=== PATIENT | male | born 1945 | race African-American/Black ===

== ENCOUNTER 2024-09-28 01:20 | Emergency (ER) | payer OTHER ==
[~2024-09-28] VITALS: Ht 190.5 cm; Wt 165.0 kg
--- NOTE | 2024-09-28 03:09 | ED.PDOC ---
[place]. trauma (HPI) HPI Comments 79-year-old male who came to ER for chest wall injury. Patient has a ground level fall a week ago, and landed badly on his left side. Patient complaining of generalized pain all over his body, more prominent on his left chest wall, left arm, left hip. Patient able to ambulate with no difficulty Chief Complaint: Chest Wall Injury Time Seen by MD: 03:08 Reviewed notes: Nurses Notes Allergies: Coded Allergies: NO KNOWN ALLERGIES (Unverified , 09/28/24) Information Source: Patient Mode of Arrival: EMS Severity: Moderate Timing: Days Duration: Since onset Prehospital treatment: None Location: (L) Arm, Chest (Left) Mechanism: Fall Associated signs and symtoms: Weakness Past Medical History PAST MEDICAL HISTORY: Denies Surgical History (Other): G-tube Family History Family History: Reviewed,noncontributory to illness Social History Smoker: Non-Smoker Alcohol: Denies ETOH Use Drugs: Denies Drug Use Lives In: Home Constitutional: denies: chills, diaphoresis, fatigue, fever, malaise, sweats, weakness, others EENTM: denies: blurred vision, double vision, ear bleeding, ear discharge, ear drainage, ear pain, ear ringing, eye pain, eye redness, hearing loss, mouth pain, mouth swelling, nasal discharge, nose bleeding, nose congestion, nose pain, photophobia, tearing, throat pain, throat swelling, voice changes, others Respiratory: denies: cough, hemoptysis, orthopnea, SOB at rest, shortness of breath, SOB with excertion, stridor, wheezing, others Cardiovascular: reports: chest pain (Left chest wall); denies: dizzy spells, diaphoresis, Dyspnea on exertion, edema, irregular heart beat, left arm pain, lightheadedness, palpitations, PND, syncope, others Gastrointestinal: denies: abdomen distended, abdominal pain, blood streaked bowels, constipated, diarrhea, dysphagia, difficulty swallowing, hematemesis, melena, nausea, poor appetite, poor fluid intake, rectal bleeding, rectal pain, vomiting, others Genitourinary: denies: burning, dysuria, flank pain, frequency, hematuria, incontinence, penile discharge, penile sore, pain, testicle pain, testicle swelling, urgency, others Neurological: denies: dizziness, fainting, headache, left sided numbness, left sided weakness, numbness, paresthesia, pre-existing deficit, right sided numbness, right sided weakness, seizure, speech problems, tingling, tremors, weakness, others Musculoskeletal: reports: joint pain (Left hip), muscle pain (Left upper arm); denies: back pain, gout, joint swelling, muscle stiffness, neck pain, others Integumetry: reports: bruises; denies: change in color, change in hair/nails, dryness, laceration, lesions, lumps, rash, wounds, others Allergic/Immunocompromised: denies: Difficulty Healing, Frequent Infections, Hives, Itching, others Hematologic/Lymphatic: denies: anemia, blood clots, easy bleeding, easy bruising, swollen glands, others Endocrine: denies: excessive hunger, excessive sweating, excessive thirst, excessive urination, flushing, intolerance to cold, intolerance to heat, unexplained weight gain, unexplained weight loss, others Psychiatric: denies: anxiety, bipolar disorder, depression, hopeless, panic disorder, schizophrenia, sleepless, suicidal, others Physical Exam General Appearance: Mild Distress, Normal HEENT: Normal ENT Inspection, Pharynx Normal, TMs Normal Neck: Full Range of Motion, Non-Tender, Normal, Normal Inspection Respiratory: Chest Non-Tender, Lungs Clear, No Accessory Muscle Use, No Respiratory Distress, Normal Breath Sounds Cardiovascular: No Edema, No JVD, No Murmur, No Gallop, Normal Peripheral Pulses, Regular Rate/Rhythm Breast Exam: Deferred Gastrointestinal: No Organomegaly, Non Tender, No Pulsatile Mass, Normal Bowel Sounds, Soft Genitalia: Deferred Pelvic: Deferred Rectal: Deferred Extremities: No calf tenderness, Normal capillary refill, Normal inspection, Normal range of motion, Non-tender, No pedal edema Musculoskeletal : Apperance: Normal 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 Was a procedure done?: No EKG EKG : Pulse Rate (adult): 69 Cardiac Rhythm: NSR Differential Diagnosis Multiple Trauma: Fractures, Pulmonary Contusion, Abrasions, Contusion, Hematoma X-Ray, Labs, Meds, VS Vital Signs Date Time Temp Pulse Resp B/P (MAP) Pulse Ox O2 Delivery O2 Flow Rate FiO2 09/28/24 03:37 76 16 100 Room Air* 0 21 09/28/24 03:32 98.0 76 16 138/66 (90) 100 98.0 09/28/24 03:09 69 09/28/24 01:23 69 09/28/24 01:20 97.7 90 20 143/90 (107) 100 Lab Test 09/28/24 04:00 09/28/24 03:15 Range/Units Troponin I High Sensitivity 11 10 </=54 ng/L White Blood Count 12.6 H 4.4-10.8 10^3/uL Red Blood Count 3.52 L 4.5-5.90 10^6/uL Hemoglobin 11.2 L 13.5-17.5 g/dL Hematocrit 34.5 L 41.0-53.0 % Mean Corpuscular Volume 98.1 80.0-100.0 fL Mean Corpuscular Hemoglobin 31.7 28.0-32.0 pg Mean Corpuscular Hemoglobin Concent 32.3 32.0-36.0 g/dL Red Cell Distribution Width 14.9 H 11.8-14.3 % Platelet Count 113 L 140-450 10^3/uL Mean Platelet Volume 10.9 H 6.9-10.8 fL Neutrophils (%) (Auto) 83.2 H 37.0-80.0 % Lymphocytes (%) (Auto) 9.4 L 10.0-50.0 % Monocytes (%) (Auto) 7.2 0.0-12.0 % Eosinophils (%) (Auto) 0.0 0.0-7.0 % Basophils (%) (Auto) 0.2 0.0-2.0 % Neutrophils # (Auto) 10.5 H 1.6-8.6 10 ^3/uL Lymphocytes # (Auto) 1.2 0.4-5.4 10 ^3/uL Monocytes # (Auto) 0.9 0-1.3 10 ^3/uL Eosinophils # (Auto) 0 0-0.8 10 ^3/uL Basophils # (Auto) 0 0-0.2 10 ^3/uL Nucleated Red Blood Cells 0.5 % Prothrombin Time 15.3 H 9.3-11.8 sec Prothrombin Time INR 1.49 H 0.9-1.15 Activated Partial Thromboplast Time 24.3 L 24.5-34.5 SEC Sodium Level 137 136-145 mmol/L Potassium Level 4.4 3.5-5.1 mmol/L Chloride Level 103 98-107 mmol/L Carbon Dioxide Level 23 20-31 mmol/L Anion Gap 11 5-15 Blood Urea Nitrogen 33 H 9-23 mg/dL Creatinine 2.08 H 0.700-1.30 mg/dL Glomerular Filtration Rate Calc 32 >90 mL/min BUN/Creatinine Ratio 15.9 10.0-20.0 Serum Glucose 141 H 74-106 mg/dL Calcium Level 10.5 H 8.7-10.4 mg/dL Total Bilirubin 3.8 H 0.2-1.0 mg/dL Aspartate Amino Transferase (AST) 193 H 13-40 U/L Alanine Aminotransferase (ALT) 139 H 7-40 U/L Alkaline Phosphatase 115 46-116 U/L B-Type Natriuretic Peptide 18.46 0-100 pg/mL Total Protein 7.4 5.7-8.2 g/dL Albumin 3.7 3.2-4.8 g/dL Current Medications Medications (Trade) Dose Ordered Sig/Teetee Route Start Time Stop Time Status Last Admin Acetaminophen/ Hydrocodone Bitart ([place] 5/325MG Tab) 1 tab ONCE ONCE PO 09/28/24 03:00 09/28/24 03:06 DC 09/28/24 03:28 Troponin is on 10 and 11. EKG shows no signs of ischemia. Hemoglobin 11.2. BUN 33 creatinine 2.1. BNP is 19. The patient was given [place] for his pain. He is to follow up with primary care physician. Time of 1ST Reevaluation: 03:06 Reevaluation 1ST: Unchanged Patient Education/Counseling: Diagnosis, Treatment Family Education/Counseling: No Family Present Departure 1 Departure Time of Disposition: 05:25 Impression: Primary Impression: Fall Qualified Codes: W19.XXXA - Unspecified fall, initial encounter Additional Impressions: Chest wall contusion Qualified Codes: S20.212A - Contusion of left front wall of thorax, initial encounter Contusion, upper limb Qualified Codes: S40.022A - Contusion of left upper arm, initial encounter Disposition: HOME / SELF CARE / HOMELESS Condition: Stable Additional Instructions: Reassessed patient, vital signs stable. Denies any new symptoms. Patient is able to tolerate PO and ambulate/be mobile at their baseline without concern. Risks and benefits of all medications given or prescribed, if any, discussed. All lab work, imaging and diagnostic studies were reviewed by me. The patient was counseled extensively on my clinical impression, diagnosis, expected course of the disease, and plan, including their follow-up care. Will discharge patient. Patient instructed to follow up with Primary Care Physician within 24-48 hours. Strict return precautions given for further exacerbation of symptoms or for new symptoms. The patient was given the opportunity to ask questions and all que stions were answered by myself and the nursing/tech staff. Patient is in agreement with the care plan. The patient verbally expressed understanding of the discharge instructions, including the reasons to return to the Emergency Department. Discharged With: Self Critical Care Note Critical Care Time?: No Stability Stability form required: No Heart Score Heart Score: Heart Score Response (Comments) Value History N/A 0 EKG N/A 0 Age N/A 0 Risk Factors N/A 0 Troponin N/A 0 Total 0 I personally scribed for RCOW WIGGINS MD ([email or web address]) on 09/28/24 at 03:09. Electronically submitted by De Keenan ([email or web address]). I personally scribed for CROW WIGGINS MD ([email or web address]) on 09/28/24 at 03:09. Electronically submitted by De Keenan ([email or web address]). CROW WIGGINS MD Sep 28, 2024 03:09
[2024-09-28] MEDS: HYDROcodone-ACET 5/325MG TAB PO ONE (03:28)
[2024-09-28 03:32] VITALS: TEMP 98
[2024-09-28 03:37] VITALS: PULSE 76; RESP 16; O2SAT 100
[2024-09-28 03:43] LABS: Albumin 3.7 g/dL (3.2-4.8); Alkaline Phosphatase 115 U/L (46-116); Anion Gap 11 (5-15); Carbon Dioxide 23 mmol/L (20-31); Chloride 103 mmol/L (98-107); Potassium 4.4 mmol/L (3.5-5.1); Sodium 137 mmol/L (136-145)
[2024-09-28 03:44] LABS: Basophils # (auto) 0 10 ^3/uL (0-0.2); Basophils % (auto) 0.2 % (0.0-2.0); Eosinophils # (auto) 0 10 ^3/uL (0-0.8); Hematocrit 34.5 % (41.0-53.0); Hemoglobin 11.2 g/dL (13.5-17.5); Lymphocytes # (auto) 1.2 10 ^3/uL (0.4-5.4); Lymphocytes % (auto) 9.4 % (10.0-50.0); Mean Corpuscular Hemoglobin 31.7 pg (28.0-32.0); Mean Corpuscular Hgb Conc. 32.3 g/dL (32.0-36.0); Mean Corpuscular Volume 98.1 fL (80.0-100.0); Monocytes # (auto) 0.9 10 ^3/uL (0-1.3); Monocytes % (auto) 7.2 % (0.0-12.0); Neutrophils # (auto) 10.5 10 ^3/uL (1.6-8.6); Neutrophils % (auto) 83.2 % (37.0-80.0); Nucleated Red Blood Cells % 0.5 %; Platelet Count (auto) 113 10^3/uL (140-450); Red Blood Cells 3.52 10^6/uL (4.5-5.90); Red Cell Distribution Width 14.9 % (11.8-14.3); Total Protein 7.4 g/dL (5.7-8.2); White Blood Cell 12.6 10^3/uL (4.4-10.8)
[2024-09-28 03:47] LABS: Alanine Aminotransferase 139 U/L (7-40); Aspartate Aminotransferase 193 U/L (13-40); Bilirubin, Total 3.8 mg/dL (0.2-1.0); Calcium 10.5 mg/dL (8.7-10.4); Glucose 141 mg/dL (74-106)
[2024-09-28 04:16] LABS: INR 1.49 (0.9-1.15); Partial Thromboplastin Time 24.3 SEC (24.5-34.5); Prothrombin Time 15.3 sec (9.3-11.8)
[2024-09-28 04:44] LABS: BUN/Creatinine Ratio 15.9 (10.0-20.0)
[2024-09-28 04:49] LABS: Blood Urea Nitrogen 33 mg/dL (9-23)
--- NOTE | 2024-09-28 05:18 | DVH ---
CT CHEST, ABDOMEN AND PELVIS WITHOUT CONTRAST HISTORY: fall COMPARISON: None TECHNIQUE: Helical axial CT images of the chest, abdomen and pelvis were obtained without intravenous contrast. Multiplanar reformats. Dedicated CT of the left humerusr without contrast was performed. One or more of the following radiation dose reduction techniques were used for this examination: auto mated exposure control, adjustment of the mA and/or kV according to patient size, use of iterative re construction technique. Dose: DLP 1814.5 4+867.61 FINDINGS: Evaluation of visceral and vascular structures is limited due to lack of contrast administration. The airway is patent. No pneumomediastinum or pneumothorax. The lungs appear clear without focal air space opacity or effusion. No mediastinal or hilar adenopathy. Thoracic aorta appears normal in swati renae and contour. There is diffuse hepatic steatosis. The gallbladder, spleen, pancreas and adrenal glands appear unrem arkable. Kidneys appear symmetric without hydronephrosis. There is an IVC filter. No evidence of bowel obstruction or focal bowel wall thickening. Mild gaseous distention proximal col onic loops. Severe degenerative changes of the spine without discrete fracture. Specific attention to the left hu merus demonstrates no evidence of fracture or dislocation. No discrete soft tissue swelling. Moderate degenerative changes of the elbow joint without discrete fracture. IMPRESSION: 1. No acute findings chest abdomen pelvis 2. No discrete fracture of the left humerus. 3. Diffuse hepatic steatosis.
[2024-09-28 05:46] VITALS: BP 118/74; PULSE 83; RESP 18; O2SAT 96
--- NOTE | 2024-09-28 07:14 | ECG ---
[facility] Test Date: 2024-09-28 Test Time: 01:23:45 Pat Name: MANAV MENJIVAR Department: ER Room: Gender: M Copy Clerk: : 1945 Requested By: EMERGENCY EMERGENCY Order Number: [id number] Reading MD: Measurements Intervals [place] Rate: 69 P: 71 OH: 120 QRS: 63 QRSD: 92 T: 60 QT: 493 QTc: 529 Interpretive Statements Sinus rhythm Atrial premature complex Prolonged QT interval Please click the below link to view image of tracing.
== END 2024-09-28 05:51 | disposition home or self-care (01) ==
LOC: ER 01:20 → EDBD 01:20 → ER 05:51
DX: S20.212A Contusion of left front wall of thorax, initial encounter (principal); S40.022A Contusion of left upper arm, initial encounter; W18.30XA Fall on same level, unspecified, initial encounter; Y93.89 Activity, other specified; Y92.89 Other specified places as the place of occurrence of the external cause; Y99.8 Other external cause status
CPT/HCPCS: 36415; 71250; 73200; 74176; 80053; 83880; 84484; 85025; 85610; 85730; 93005

== ENCOUNTER 2024-09-29 04:37 | Inpatient (IN) | payer OTHER, MEDICAID ==
[~2024-09-29] VITALS: Ht 190.5 cm; Wt 94.2 kg
--- NOTE | 2024-09-29 05:57 | DVH ---
CHEST RADIOGRAPH Indication: ALOC Technique: Single frontal view of the chest was obtained COMPARISON: None FINDINGS: Lines and Tubes: None Lungs: Clear Pleura: No effusion. No pneumothorax. Cardiomediastinal contours: Unremarkable Bones: Unremarkable IMPRESSION: No acute disease.
[2024-09-29 06:29] LABS: Albumin 3.7 g/dL (3.2-4.8); Anion Gap 10 (5-15); Calcium 9.5 mg/dL (8.7-10.4); Carbon Dioxide 24 mmol/L (20-31); Chloride 102 mmol/L (98-107); Potassium 4.2 mmol/L (3.5-5.1); Total Protein 7.4 g/dL (5.7-8.2)
[2024-09-29 06:32] LABS: Sodium 136 mmol/L (136-145)
[2024-09-29 06:33] LABS: Alanine Aminotransferase 130 U/L (7-40); Alkaline Phosphatase 117 U/L (46-116); Aspartate Aminotransferase 170 U/L (13-40); Bilirubin, Total 2.2 mg/dL (0.2-1.0); Glucose 133 mg/dL (74-106)
[2024-09-29 06:52] LABS: Basophils # (auto) 0.1 10 ^3/uL (0-0.2); Basophils % (auto) 0.6 % (0.0-2.0); Eosinophils # (auto) 0 10 ^3/uL (0-0.8); Hematocrit 34.4 % (41.0-53.0); Hemoglobin 11.3 g/dL (13.5-17.5); Lymphocytes # (auto) 1.6 10 ^3/uL (0.4-5.4); Lymphocytes % (auto) 15.3 % (10.0-50.0); Mean Corpuscular Hemoglobin 32.1 pg (28.0-32.0); Mean Corpuscular Hgb Conc. 32.7 g/dL (32.0-36.0); Monocytes # (auto) 0.6 10 ^3/uL (0-1.3); Monocytes % (auto) 5.9 % (0.0-12.0); Neutrophils # (auto) 8.3 10 ^3/uL (1.6-8.6); Neutrophils % (auto) 78.2 % (37.0-80.0); Nucleated Red Blood Cells % 0.3 %; Platelet Count (auto) 123 10^3/uL (140-450); Red Blood Cells 3.51 10^6/uL (4.5-5.90); Red Cell Distribution Width 15.1 % (11.8-14.3); White Blood Cell 10.7 10^3/uL (4.4-10.8)
[2024-09-29 06:58] LABS: BUN/Creatinine Ratio 20.8 (10.0-20.0)
[2024-09-29 07:01] LABS: Blood Alcohol < 3.0 mg/dL (<10); Blood Urea Nitrogen 51 mg/dL (9-23)
--- NOTE | 2024-09-29 07:11 | ED.PDOC ---
Altered Mental Status HPI Comments 79 Y M, presents to the ED with CC of ALOC. Per ED staff, patient was found in ED lobby with an altered level of consciousness. Patient is currently AXO1 and is unable to provide any medical history. Chief Complaint: ALOC Time Seen by MD: 06:30 Reviewed Notes: Nurses Notes, Medications, Allergies Allergies: Coded Allergies: NO KNOWN ALLERGIES (Unverified , 09/28/24) Information Source: Patient Mode of Arrival: Wheelchair Severity: Mild Timing: Hours Duration: Since onset Prehospital treatment: None Quality: Confusion Recent: None History of: IV Drug Use Associated Signs and Symptoms: None Past Medical History PAST MEDICAL HISTORY: Denies Family History Family History: Reviewed,noncontributory to illness Social History Smoker: Non-Smoker Alcohol: Denies ETOH Use Drugs: Denies Drug Use Lives In: Home Constitutional: denies: chills, diaphoresis, fatigue, fever, malaise, sweats, weakness, others EENTM: denies: blurred vision, double vision, ear bleeding, ear discharge, ear drainage, ear pain, ear ringing, eye pain, eye redness, hearing loss, mouth pain, mouth swelling, nasal discharge, nose bleeding, nose congestion, nose pain, photophobia, tearing, throat pain, throat swelling, voice changes, others Respiratory: denies: cough, hemoptysis, orthopnea, SOB at rest, shortness of breath, SOB with excertion, stridor, wheezing, others Cardiovascular: denies: chest pain, dizzy spells, diaphoresis, Dyspnea on exertion, edema, irregular heart beat, left arm pain, lightheadedness, palpitations, PND, syncope, others Gastrointestinal: denies: abdomen distended, abdominal pain, blood streaked bowels, constipated, diarrhea, dysphagia, difficulty swallowing, hematemesis, melena, nausea, poor appetite, poor fluid intake, rectal bleeding, rectal pain, vomiting, others Genitourinary: denies: burning, dysuria, flank pain, frequency, hematuria, incontinence, penile discharge, penile sore, pain, testicle pain, testicle swelling, urgency, others Neurological: denies: dizziness, fainting, headache, left sided numbness, left sided weakness, numbness, paresthesia, pre-existing deficit, right sided num bness, right sided weakness, seizure, speech problems, tingling, tremors, weakness, others Musculoskeletal: denies: back pain, gout, joint pain, joint swelling, muscle pain, muscle stiffness, neck pain, others Integumetry: denies: bruises, change in color, change in hair/nails, dryness, laceration, lesions, lumps, rash, wounds, others Allergic/Immunocompromised: denies: Difficulty Healing, Frequent Infections, Hives, Itching, others Hematologic/Lymphatic: denies: anemia, blood clots, easy bleeding, easy bruising, swollen glands, others Endocrine: denies: excessive hunger, excessive sweating, excessive thirst, excessive urination, flushing, intolerance to cold, intolerance to heat, unexplained weight gain, unexplained weight loss, others Psychiatric: denies: anxiety, bipolar disorder, depression, hopeless, panic disorder, schizophrenia, sleepless, suicidal, others Unable to Obtain due to: Altered Mental Status Physical Exam General Appearance: Moderate Distress, Normal HEENT: Normal ENT Inspection, Pharynx Normal, TMs Normal Neck: Full Range of Motion, Non-Tender, Normal, Normal Inspection Respiratory: Chest Non-Tender, Lungs Clear, No Accessory Muscle Use, No Respiratory Distress, Normal Breath Sounds Cardiovascular: No Edema, No JVD, No Murmur, No Gallop, Normal Peripheral Pulses, Regular Rate/Rhythm Breast Exam: Deferred Gastrointestinal: No Organomegaly, Non Tender, No Pulsatile Mass, Normal Bowel Sounds, Soft Genitalia: Deferred Pelvic: Deferred Rectal: Deferred Extremities: No calf tenderness, Normal capillary refill, Normal inspection, Normal range of motion, Non-tender, No pedal edema Musculoskeletal : Apperance: Normal Neurologic: Disoriented, No Motor Deficits, Normal Affect, Normal Mood, No Sensory Deficits Cerebellar Function: NOT DONE Reflexes: NOT DONE Skin: Dry, Normal Color, Warm Lymphatic: No Adenopathy Was a procedure done? Was a procedure done?: No Differential Diagnosis (ALOC) Differential Diagnosis: Dehydration, Hypoxemia, Drug Overdose, ETOH Intoxication X-Ray, Labs, Meds, VS Vital Signs Date Time Temp Pulse Resp B/P (MAP) Pulse Ox O2 Delivery O2 Flow Rate FiO2 09/29/24 04:55 97.6 73 18 116/58 (77) 96 Lab Test 09/29/24 05:29 Range/Units White Blood Count 10.7 4.4-10.8 10^3/uL Red Blood Count 3.51 L 4.5-5.90 10^6/uL Hemoglobin 11.3 L 13.5-17.5 g/dL Hematocrit 34.4 L 41.0-53.0 % Mean Corpuscular Volume 98.0 80.0-100.0 fL Mean Corpuscular Hemoglobin 32.1 H 28.0-32.0 pg Mean Corpuscular Hemoglobin Concent 32.7 32.0-36.0 g/dL Red Cell Distribution Width 15.1 H 11.8-14.3 % Platelet Count 123 L 140-450 10^3/uL Mean Platelet Volume 11.5 H 6.9-10.8 fL Neutrophils (%) (Auto) 78.2 37.0-80.0 % Lymphocytes (%) (Auto) 15.3 10.0-50.0 % Monocytes (%) (Auto) 5.9 0.0-12.0 % Eosinophils (%) (Auto) 0.0 0.0-7.0 % Basophils (%) (Auto) 0.6 0.0-2.0 % Neutrophils # (Auto) 8.3 1.6-8.6 10 ^3/uL Lymphocytes # (Auto) 1.6 0.4-5.4 10 ^3/uL Monocytes # (Auto) 0.6 0-1.3 10 ^3/uL Eosinophils # (Auto) 0 0-0.8 10 ^3/uL Basophils # (Auto) 0.1 0-0.2 10 ^3/uL Nucleated Red Blood Cells 0.3 % Sodium Level 136 136-145 mmol/L Potassium Level 4.2 3.5-5.1 mmol/L Chloride Level 102 98-107 mmol/L Carbon Dioxide Level 24 20-31 mmol/L Anion Gap 10 5-15 Blood Urea Nitrogen 51 #H 9-23 mg/dL Creatinine 2.45 H 0.700-1.30 mg/dL Glomerular Filtration Rate Calc 26 >90 mL/min BUN/Creatinine Ratio 20.8 H 10.0-20.0 Serum Glucose 133 H 74-106 mg/dL Lactic Acid Level 1.9 0.4-2.0 mmol/L Calcium Level 9.5 8.7-10.4 mg/dL Total Bilirubin 2.2 H 0.2-1.0 mg/dL Aspartate Amino Transferase (AST) 170 H 13-40 U/L Alanine Aminotransferase (ALT) 130 H 7-40 U/L Alkaline Phosphatase 117 H 46-116 U/L Troponin I High Sensitivity 10 </=54 ng/L Total Protein 7.4 5.7-8.2 g/dL Albumin 3.7 3.2-4.8 g/dL Plasma/Serum Blood Alcohol < 3.0 <10 mg/dL [place] [address] Ph: [phone] DIAGNOSTIC IMAGING Diagnostic Imaging Report : [id number] Signed PATIENT: MANAV MENJIVAR ACCT: [id number] UNIT: [id number] : 1945 LOC: ER ROOM / BED: / AGE / SEX: 79 / M ADM STATUS: REG ER SERVICE 5 ORDERING PHYSICIAN: CROW WIGGINS MD PROCEDURE(s): CXRP - CHEST PORTABLE REASON: ALOC ORDER NUMBER(s): [id number], ACCESSION NUMBER(s): [id number] CHEST RADIOGRAPH Indication: ALOC Technique: Single frontal view of the chest was obtained COMPARISON: None FINDINGS: Lines and Tubes: None Lungs: Clear Pleura: No effusion. No pneumothorax. Cardiomediastinal contours: Unremarkable Bones: Unremarkable IMPRESSION: No acute disease. ATED BY: JOSE CHANDLER MD DICTATED DATE/TIME: 09/29/24552 SIGNED BY: JOSE CHANDLER MD SIGNED DATE/TIME: 09/29/24552 CC: Patient disoriented. Possibly alcohol abuse. Does not take care himself. Liver profile elevated. Kidney function elevated. ATN. Establish intravenous access. Was given fluids. Was given thiamine. Tolerating diet. Unknown about his past medical history. Explained to the patient. Continue cardiac monitoring. Time of 1ST Reevaluation: 07:00 Reevaluation 1ST: Unchanged Patient Education/Counseling: Diagnosis, Treatment Family Education/Counseling: No Family Present Departure 1 Departure Time of Disposition: 07:27 Impression: Primary Impression: Metabolic encephalopathy Additional Impression: Alcoholic liver disease Disposition: ADMITTED INPATIENT Admit to: Med Surg Condition: Guarded Critical Care Note Critical Care Time?: Yes (90 min-critical care time only) Stability Stability form required: No Heart Score Heart Score: Heart Score Response (Comments) Value History N/A 0 EKG N/A 0 Age N/A 0 Risk Factors N/A 0 Troponin N/A 0 Total 0 I personally scribed for ROSIO MARTIN MD ([email or web address]) on 09/29/24 at 07:11. Electronically submitted by Peggy Lugo ([email or web address]). I personally scribed for ROSIO MARTIN MD ([email or web address]) on 09/29/24 at 07:32. Electronically submitted by Peggy Lugo ([email or web address]). ROSIO MARTIN MD Sep 29, 2024 07:11
[2024-09-29] MEDS: SODIUM CHLORIDE 0.9% 1,000 ML IV ONE (09:15)
[2024-09-29] MEDS: THIAMINE 100mg/ml INJ (200mg/2ml VIAL) IV ONE (09:23)
[2024-09-29] MEDS ORDERED: DOCUSATE SOD 100 MG CAP PO PRN (10:30)
[2024-09-29] MEDS ORDERED: ACETAMINOPHEN 325 MG TAB PO PRN (10:30)
[2024-09-29] MEDS ORDERED: MORPHINE SULFATE INJ 2 MG/ml SYRG IV PRN (10:30)
[2024-09-29] MEDS ORDERED: ONDANSETRON HCL 4 MG/2 ML VIAL IV PRN (10:30)
[2024-09-29] MEDS ORDERED: NITROGLYCERIN 0.4 MG SL TAB SL PRN (10:30)
--- NOTE | 2024-09-29 10:47 | DVHHP2 ---
History of Present Illness Reason for Visit: Metabolic encephalopathy History of Present Illness The patient is a 79-year-old male on hospice with past medical history of liver disease presented to [facility] ED for evaluation of altered level of consciousness. As reported patient was found in the ED lab be altered, generalized weakness, shortness of breaths, unable to provide detail medical history. Patient was seen and evaluated in the ED, laboratory data shows WBC 10.7, hemoglobin 11.3, hematocrit 344, platelets 123, sodium 136, potassium 4.2, BUN 51, creatinine 2.45, GFR 26, glucose 133, AST one hundred seventy, ALT 130, troponin 10, total bilirubin 2.2, blood pressure 132/87, pulse 94, temperature 98.1 F, O2 saturation 99% on oxygen. Chest x-ray show no acute disease. Please see medication orders section in the computer. On my assessment, patient denied chest pain, no headache, no dizziness, no diaphoresis, currently on oxygen, no diarrhea, no nausea, no vomiting, no fever, no chills. Patient was admitted for further evaluation and medical management. Past Medical History Liver disease Past Surgical History Unknown Family History Reviewed, noncontributory to the management of this case. Past Social History The patient lives at home, denies smoking, alcohol or illicit drugs abuse. Review of Systems Constitutional: Yes: Weakness; No: Fever, Chills, Sweats, Malaise, Other Eyes: No: Pain, Vision change, Conjunctivae inflammation, Eyelid inflammation, Other, Redness ENT: No: Ear pain, Ear discharge, Nose pain, Nose discharge, Nose congestion, Mouth pain, Mouth swelling, Throat pain, Throat swelling, Other Respiratory: Shortness of breath; No: Cough, Dry, SOB with excertion, Wheezing, Hemoptysis, Pleuritic Pain, Sputum, Wheezing, Other Cardiovascular: No: Chest Pain, Palpitations, Orthopnea, Paroxysmal Noc. Dyspnea, Edema, Lt Headedness, Other Gastrointestinal: No: Nausea, Vomiting, Abdominal Pain, Diarrhea, Constipation, Melena, Hematochezia, Other Genitourinary: No Dysuria, No Frequency, No Incontinence, No Hematuria, No Retention, No Other Musculoskeletal: No: other, neck pain, shoulder pain, arm pain, back pain, hand pain, leg pain, foot pain Skin: No: Rash, Lesions, Jaundice, Bruising, Other Neurological: No: Weakness, Numbness, Incoordination, Change in speech, Confusion, Seizures, Other Allergies: Coded Allergies: NO KNOWN ALLERGIES (Unverified , 09/28/24) Exam Vital Signs Vital Signs Date Time Temp Pulse Resp B/P (MAP) Pulse Ox O2 Delivery O2 Flow Rate FiO2 09/29/24 09:27 98.1 94 18 132/87 (102) 100 98.1 09/29/24 09:27 Room Air General Appearance: Alert, Oriented X3, Cooperative, No acute distress HEENT: Atraumatic, PERRLA, EOMI, Mucous membr. moist/pink Respiratory: Clear to auscultation, Normal air movement Cardiovascular: Regular rate, Normal S1, Normal S2, No murmurs Abdominal: Normal bowel sounds, Soft, No tenderness, No hepatospenomegaly, No masses Extremities: No clubbing, No cyanosis, No edema, Normal pulses, No tenderness/swelling Skin: No rashes, No breakdown, No significant lesion Neuro: Normal tone, Sensation intact, Cranial nerves 3-12 NL, Reflexes 2+, Other (Generalized weakness) Psych/Mental Status: Mental status NL, Mood NL Labs/Xrays Labs Test 09/29/24 08:00 09/29/24 05:29 Range/Units Plasma/Serum Blood Alcohol < 3.0 <10 mg/dL White Blood Count 10.7 4.4-10.8 10^3/uL Red Blood Count 3.51 L 4.5-5.90 10^6/uL Hemoglobin 11.3 L 13.5-17.5 g/dL Hematocrit 34.4 L 41.0-53.0 % Mean Corpuscular Volume 98.0 80.0-100.0 fL Mean Corpuscular Hemoglobin 32.1 H 28.0-32.0 pg Mean Corpuscular Hemoglobin Concent 32.7 32.0-36.0 g/dL Red Cell Distribution Width 15.1 H 11.8-14.3 % Platelet Count 123 L 140-450 10^3/uL Mean Platelet Volume 11.5 H 6.9-10.8 fL Neutrophils (%) (Auto) 78.2 37.0-80.0 % Lymphocytes (%) (Auto) 15.3 10.0-50.0 % Monocytes (%) (Auto) 5.9 0.0-12.0 % Eosinophils (%) (Auto) 0.0 0.0-7.0 % Basophils (%) (Auto) 0.6 0.0-2.0 % Neutrophils # (Auto) 8.3 1.6-8.6 10 ^3/uL Lymphocytes # (Auto) 1.6 0.4-5.4 10 ^3/uL Monocytes # (Auto) 0.6 0-1.3 10 ^3/uL Eosinophils # (Auto) 0 0-0.8 10 ^3/uL Basophils # (Auto) 0.1 0-0.2 10 ^3/uL Nucleated Red Blood Cells 0.3 % Sodium Level 136 136-145 mmol/L Potassium Level 4.2 3.5-5.1 mmol/L Chloride Level 102 98-107 mmol/L Carbon Dioxide Level 24 20-31 mmol/L Anion Gap 10 5-15 Blood Urea Nitrogen 51 #H 9-23 mg/dL Creatinine 2.45 H 0.700-1.30 mg/dL Glomerular Filtration Rate Calc 26 >90 mL/min BUN/Creatinine Ratio 20.8 H 10.0-20.0 Serum Glucose 133 H 74-106 mg/dL Lactic Acid Level 1.9 0.4-2.0 mmol/L Calcium Level 9.5 8.7-10.4 mg/dL Total Bilirubin 2.2 H 0.2-1.0 mg/dL Aspartate Amino Transferase (AST) 170 H 13-40 U/L Alanine Aminotransferase (ALT) 130 H 7-40 U/L Alkaline Phosphatase 117 H 46-116 U/L Troponin I High Sensitivity 10 </=54 ng/L Total Protein 7.4 5.7-8.2 g/dL Albumin 3.7 3.2-4.8 g/dL PATIENT: MANAV MENJIVAR ACCT: [id number] UNIT: [id number] : 1945 LOC: ER ROOM / BED: / AGE / SEX: 79 / M ADM STATUS: REG ER SERVICE [id number] ORDERING PHYSICIAN: CROW WIGGINS MD PROCEDURE(s): CXRP - CHEST PORTABLE REASON: ALOC ORDER NUMBER(s): [id number], ACCESSION NUMBER(s): [id number] CHEST RADIOGRAPH Indication: ALOC Technique: Single frontal view of the chest was obtained COMPARISON: None FINDINGS: Lines and Tubes: None Lungs: Clear Pleura: No effusion. No pneumothorax. Cardiomediastinal contours: Unremarkable Bones: Unremarkable IMPRESSION: No acute disease. Assessment/Plan Assessment/Plan Metabolic encephalopathy Generalized weakness Alcoholic liver disease Elevated liver enzymes Acute on chronic renal failure Plan 1. Admit to telemetry unit 2. Breathing treatment 3. Pain control management 4. Management of fluids and electrolytes 5. Consultation for nephrology 6. Diagnostic tests chest x-ray 7. DVT prophylaxis-on SCDs 8. Repeat labs CBC, CMP in a.m. 9. Continue with current medical management 10. Treatment plan discussed with patient and RN. Patient verbalized understanding. Plan discussed with: Patient, Other (RN) Problem List: (1) Metabolic encephalopathy (2) Elevated liver enzymes (3) Generalized weakness (4) Alcoholic liver disease (5) Acute on chronic renal failure Date of Service: Sep 29, 2024 Billing Provider: ANGELO OFNSECA DNP Common Visit Codes: [id number] INP/OBS CARE (HIGH) ANGELO FONSECA DNP Sep 29, 2024 10:47
[2024-09-29] MEDS: SODIUM CHLORIDE 0.9% 1,000 ML IV SCH (11:24)
[2024-09-30] VITALS (9 sets, daily range): BP systolic 111–158; BP diastolic 48–73; PULSE 57–84; RESP 18–19; TEMP 97.4–98; O2SAT 96–100
[2024-09-30] MEDS: MULTIPLE VITAMIN TAB PO SCH (09:27)
[2024-09-30] MEDS: FAMOTIDINE (10MG/ML) 2ML VL IV SCH (09:27)
[2024-09-30] MEDS: FOLIC ACID 1 MG TAB PO SCH (09:27)
[2024-09-30] MEDS: THIAMINE 100mg/ml INJ (200mg/2ml VIAL) IV SCH (09:28)
--- NOTE | 2024-09-30 12:41 | DVHPN2 ---
Reviewed: Care Plan, H&P, Labs, Medications, Previous Orders, Radiology Changes from previous H/P or p: No Changes Eyes: No Pain, No Vision change, No Conjunctivae inflammation, No Eyelid inflammation, No Other, No Redness ENT: No Ear pain, No Ear discharge, No Nose pain, No Nose discharge, No Nose congestion, No Mouth pain, No Mouth swelling, No Throat pain, No Throat swelling, No Other Cardiovascular: No Chest Pain, No Palpitations, No Orthopnea, No Paroxysmal Noc. Dyspnea, No Edema, No Lt Headedness, No Other Respiratory: No Cough, No Dry; Shortness of breath; No SOB with excertion, No Wheezing, No Hemoptysis, No Pleuritic Pain, No Sputum, No Other Gastrointestinal: No Nausea, No Vomiting, No Abdominal Pain, No Diarrhea, No Constipation, No Melena, No Hematochezia, No Other Genitourinary: No Dysuria, No Frequency, No Incontinence, No Hematuria, No Retention, No Other Musculoskeletal: No other, No neck pain, No shoulder pain, No arm pain, No back pain, No hand pain, No leg pain, No foot pain Skin: No Rash, No Lesions, No Jaundice, No Bruising, No Other Objective Vitals Vital Signs Date Time Temp Pulse Resp B/P (MAP) Pulse Ox O2 Delivery O2 Flow Rate FiO2 09/30/24 10:22 100 Room Air* 0 21 09/30/24 08:46 97.4 57 18 146/48 (80) 97.4 Intake/Output Intake and Output 09/30/24 07:00 Intake Total 0 ml Balance 0 ml Intake Oral 0 ml Medications Current Medications Medications Dose Ordered Sig/Teetee Route Start Time Stop Time Status Last Admin Dose Admin Thiamine HCl 100 mg DAILY IV 09/30/24 10:00 Folic Acid 1 mg DAILY PO 09/30/24 10:00 09/30/24 09:27 1 MG Famotidine 10 mg DAILY IV 09/30/24 10:00 Sodium Chloride 1,000 ml @ 60 mls/hr [id number] IV 09/29/24 10:30 09/29/24 11:24 60 MLS/HR Acetaminophen/ Hydrocodone Bitart 1 tab Q4HP PRN PO 09/29/24 10:30 Ondansetron HCl 4 mg Q4HP PRN IV 09/29/24 10:30 Docusate Sodium 100 mg BIDPRN PRN PO 09/29/24 10:30 Acetaminophen 650 mg Q6HP PRN PO 09/29/24 10:30 Nitroglycerin 0.4 mg Q5MINP PRN SL 09/29/24 10:30 Morphine Sulfate 2 mg Q30M PRN IV 09/29/24 10:30 Multivitamins 1 tab DAILY PO 09/30/24 10:00 09/30/24 09:27 1 TAB Laboratory Results Laboratory Tests 09/29/24 05:29 Labs and/or images reviewed: Labs reviewed by me, Image(s) reviewed by me Assessment/Plan Assessment/Plan Acute Metabolic encephalopathy Acute Generalized weakness Alcoholic liver disease thiamine folic acid multiple Elevated liver enzymes, we will check ammonia level Acute on chronic renal failure Acute dehydration: IV Patient is hospice revoked Patient belongs to [facility] Plan discussed with: Patient My Orders Orders - LUIZ NUÑEZ MD Procedure Category Date Status Time Ammonia LAB 09/30/24 Logged 12:35 Document Home Meds ED NURSING 09/30/24 Verified Date of Service: Sep 30, 2024 Billing Provider: LUIZ NUÑEZ MD Common Visit Codes: [id number] INP/OBS CARE(HIGH) LUIZ NUÑEZ MD Sep 30, 2024 12:41
--- NOTE | 2024-09-30 19:10 | DVHINCON2 ---
Date of service: Sep 30, 2024 Reason for Consultation PAUL History of Present Illness 79 years old male on hospice with unknown exact medical history presented with altered mental status per HPI Patient is verbally abusive non cooperative HPI obtained from the chart Allergies: Coded Allergies: NO KNOWN ALLERGIES (Unverified , 09/28/24) Home Meds Unable to Obtain Active Prescriptions or Reported Meds Current Medications Current Medications Medications (Trade) Dose Ordered Sig/Teetee Route PRN Reason Start Time Stop Time Status Last Admin Thiamine HCl 100 mg DAILY IV 09/30/24 10:00 Folic Acid 1 mg DAILY PO 09/30/24 10:00 09/30/24 09:27 Famotidine (Pepcid Injection) 10 mg DAILY IV 09/30/24 10:00 Multivitamins (Mvi Tab) 1 tab DAILY PO 09/30/24 10:00 09/30/24 09:27 H&P Exam Vital Signs/I&O Vital Sign Date Time Temp Pulse Resp B/P (MAP) Pulse Ox O2 Delivery O2 Flow Rate FiO2 09/30/24 16:37 97.5 66 18 135/61 (85) 99 97.5 09/30/24 10:22 Room Air* 0 21 Intake and Output 09/29/24 09/30/24 19:00 07:00 Intake Total 0 ml Balance 0 ml Intake Oral 0 ml Labs/Diagnostic Data Labs/Diagnostic Data Laboratory Tests Test 09/29/24 08:00 09/29/24 05:29 Range/Units Plasma/Serum Blood Alcohol < 3.0 < 3.0 <10 mg/dL White Blood Count 10.7 4.4-10.8 10^3/uL Red Blood Count 3.51 L 4.5-5.90 10^6/uL Hemoglobin 11.3 L 13.5-17.5 g/dL Hematocrit 34.4 L 41.0-53.0 % Mean Corpuscular Volume 98.0 80.0-100.0 fL Mean Corpuscular Hemoglobin 32.1 H 28.0-32.0 pg Mean Corpuscular Hemoglobin Concent 32.7 32.0-36.0 g/dL Red Cell Distribution Width 15.1 H 11.8-14.3 % Platelet Count 123 L 140-450 10^3/uL Mean Platelet Volume 11.5 H 6.9-10.8 fL Neutrophils (%) (Auto) 78.2 37.0-80.0 % Lymphocytes (%) (Auto) 15.3 10.0-50.0 % Monocytes (%) (Auto) 5.9 0.0-12.0 % Eosinophils (%) (Auto) 0.0 0.0-7.0 % Basophils (%) (Auto) 0.6 0.0-2.0 % Neutrophils # (Auto) 8.3 1.6-8.6 10 ^3/uL Lymphocytes # (Auto) 1.6 0.4-5.4 10 ^3/uL Monocytes # (Auto) 0.6 0-1.3 10 ^3/uL Eosinophils # (Auto) 0 0-0.8 10 ^3/uL Basophils # (Auto) 0.1 0-0.2 10 ^3/uL Nucleated Red Blood Cells 0.3 % Sodium Level 136 136-145 mmol/L Potassium Level 4.2 3.5-5.1 mmol/L Chloride Level 102 98-107 mmol/L Carbon Dioxide Level 24 20-31 mmol/L Anion Gap 10 5-15 Blood Urea Nitrogen 51 #H 9-23 mg/dL Creatinine 2.45 H 0.700-1.30 mg/dL Glomerular Filtration Rate Calc 26 >90 mL/min BUN/Creatinine Ratio 20.8 H 10.0-20.0 Serum Glucose 133 H 74-106 mg/dL Lactic Acid Level 1.9 0.4-2.0 mmol/L Calcium Level 9.5 8.7-10.4 mg/dL Total Bilirubin 2.2 H 0.2-1.0 mg/dL Aspartate Amino Transferase (AST) 170 H 13-40 U/L Alanine Aminotransferase (ALT) 130 H 7-40 U/L Alkaline Phosphatase 117 H 46-116 U/L Troponin I High Sensitivity 10 </=54 ng/L Total Protein 7.4 5.7-8.2 g/dL Albumin 3.7 3.2-4.8 g/dL Assessment acute kidney injury unknown baseline Verbally abusive patient Non cooperative No further renal recommendations I will sign off this case We will not follow this patient given his aggressive nature Plan discussed with: Other (DARLIN Alonzo) CHRISTAL JOYNER MD Sep 30, 2024 19:10
[2024-10-01 08:00] VITALS: O2SAT 100
[2024-10-01 09:00] VITALS: BP 156/75; PULSE 83; RESP 17; TEMP 97.7; O2SAT 100
--- NOTE | 2024-10-01 11:49 | DVHPN2 ---
Reviewed: Care Plan, H&P, Labs, Medications, Previous Orders, Radiology Changes from previous H/P or p: No Changes Eyes: No Pain, No Vision change, No Conjunctivae inflammation, No Eyelid inflammation, No Other, No Redness ENT: No Ear pain, No Ear discharge, No Nose pain, No Nose discharge, No Nose congestion, No Mouth pain, No Mouth swelling, No Throat pain, No Throat swelling, No Other Cardiovascular: No Chest Pain, No Palpitations, No Orthopnea, No Paroxysmal Noc. Dyspnea, No Edema, No Lt Headedness, No Other Respiratory: No Cough, No Dry; Shortness of breath; No SOB with excertion, No Wheezing, No Hemoptysis, No Pleuritic Pain, No Sputum, No Other Gastrointestinal: No Nausea, No Vomiting, No Abdominal Pain, No Diarrhea, No Constipation, No Melena, No Hematochezia, No Other Genitourinary: No Dysuria, No Frequency, No Incontinence, No Hematuria, No Retention, No Other Musculoskeletal: No other, No neck pain, No shoulder pain, No arm pain, No back pain, No hand pain, No leg pain, No foot pain Skin: No Rash, No Lesions, No Jaundice, No Bruising, No Other Objective Vitals Vital Signs Date Time Temp Pulse Resp B/P (MAP) Pulse Ox O2 Delivery O2 Flow Rate FiO2 10/01/24 09:00 97.7 83 17 156/75 (102) 100 97.7 10/01/24 08:00 Room Air* 0 21 Intake/Output Intake and Output 10/01/24 07:00 Intake Total 1940 ml Balance 1940 ml Intake Oral 1940 ml Medications Current Medications Medications Dose Ordered Sig/Teetee Route Start Time Stop Time Status Last Admin Dose Admin Thiamine HCl 100 mg DAILY IV 09/30/24 10:00 Folic Acid 1 mg DAILY PO 09/30/24 10:00 09/30/24 09:27 1 MG Famotidine 10 mg DAILY IV 09/30/24 10:00 Sodium Chloride 1,000 ml @ 60 mls/hr [id number] IV 09/29/24 10:30 09/29/24 11:24 60 MLS/HR Acetaminophen/ Hydrocodone Bitart 1 tab Q4HP PRN PO 09/29/24 10:30 Ondansetron HCl 4 mg Q4HP PRN IV 09/29/24 10:30 Docusate Sodium 100 mg BIDPRN PRN PO 09/29/24 10:30 Acetaminophen 650 mg Q6HP PRN PO 09/29/24 10:30 Nitroglycerin 0.4 mg Q5MINP PRN SL 09/29/24 10:30 Morphine Sulfate 2 mg Q30M PRN IV 09/29/24 10:30 Multivitamins 1 tab DAILY PO 09/30/24 10:00 09/30/24 09:27 1 TAB Laboratory Results Laboratory Tests 09/29/24 05:29 Labs and/or images reviewed: Labs reviewed by me, Image(s) reviewed by me Assessment/Plan Assessment/Plan Acute Metabolic encephalopathy resolved Acute Generalized weakness resolved Alcoholic liver disease thiamine folic acid multiple Elevated liver enzymes, we will check ammonia level patient refused blood draws Acute on chronic renal failure, patient was abusive to the translator and interpreter and she refused to follow up with the patient Acute dehydration: IV Patient is hospice revoked Patient belongs to [facility] Patient is abusive to the staff and myself and uncooperative. Plan discussed with: Patient My Orders Orders - LUIZ NUÑEZ MD Procedure Category Date Status Time Ammonia LAB 09/30/24 Logged 12:35 Document Home Meds ED NURSING 09/30/24 Transmitted * [employer]er CONS 09/30/24 Transmitted Consult Date of Service: Oct 01, 2024 Billing Provider: LUIZ NUÑEZ MD Common Visit Codes: [id number] INP/OBS CARE(HIGH) LUIZ NUÑEZ MD Oct 01, 2024 11:49
--- NOTE | 2024-10-01 11:52 | DVHDS2 ---
Discharge Summary Date of Admission Sep 29, 2024 at 10:22 Date of Discharge: Oct 01, 2024 Admitting Diagnosis Generalized weakness Wounds: None Labs/Diagnostic Data: Laboratory Results Test 09/29/24 08:00 09/29/24 05:29 Plasma/Serum Blood Alcohol < 3.0 mg/dL (<10) White Blood Count 10.7 10^3/uL (4.4-10.8) Red Blood Count 3.51 10^6/uL (4.5-5.90) Hemoglobin 11.3 g/dL (13.5-17.5) Hematocrit 34.4 % (41.0-53.0) Mean Corpuscular Volume 98.0 fL (80.0-100.0) Mean Corpuscular Hemoglobin 32.1 pg (28.0-32.0) Mean Corpuscular Hemoglobin Concent 32.7 g/dL (32.0-36.0) Red Cell Distribution Width 15.1 % (11.8-14.3) Platelet Count 123 10^3/uL (140-450) Mean Platelet Volume 11.5 fL (6.9-10.8) Neutrophils (%) (Auto) 78.2 % (37.0-80.0) Lymphocytes (%) (Auto) 15.3 % (10.0-50.0) Monocytes (%) (Auto) 5.9 % (0.0-12.0) Eosinophils (%) (Auto) 0.0 % (0.0-7.0) Basophils (%) (Auto) 0.6 % (0.0-2.0) Neutrophils # (Auto) 8.3 10 ^3/uL (1.6-8.6) Lymphocytes # (Auto) 1.6 10 ^3/uL (0.4-5.4) Monocytes # (Auto) 0.6 10 ^3/uL (0-1.3) Eosinophils # (Auto) 0 10 ^3/uL (0-0.8) Basophils # (Auto) 0.1 10 ^3/uL (0-0.2) Nucleated Red Blood Cells 0.3 % Sodium Level 136 mmol/L (136-145) Potassium Level 4.2 mmol/L (3.5-5.1) Chloride Level 102 mmol/L (98-107) Carbon Dioxide Level 24 mmol/L (20-31) Anion Gap 10 (5-15) Blood Urea Nitrogen 51 mg/dL (9-23) Creatinine 2.45 mg/dL (0.700-1.30) Glomerular Filtration Rate Calc 26 mL/min (>90) BUN/Creatinine Ratio 20.8 (10.0-20.0) Serum Glucose 133 mg/dL (74-106) Lactic Acid Level 1.9 mmol/L (0.4-2.0) Calcium Level 9.5 mg/dL (8.7-10.4) Total Bilirubin 2.2 mg/dL (0.2-1.0) Aspartate Amino Transferase (AST) 170 U/L (13-40) Alanine Aminotransferase (ALT) 130 U/L (7-40) Alkaline Phosphatase 117 U/L (46-116) Troponin I High Sensitivity 10 ng/L (</=54) Total Protein 7.4 g/dL (5.7-8.2) Albumin 3.7 g/dL (3.2-4.8) Other Laboratory Tests 09/29/24 05:29 Brief Hx & Hospital Course: 79-year-old male with a history of liver disease came in for generalized weakness and altered mental status and admitted which has been resolved patient is alcoholic liver disease placed on thiamine folic acid and multivitamins elevated liver enzymes ammonia level was ordered with the patient refused blood draw. Patient has been abusive to the staff and refusing nursing care and blood draws and also refusing examination. Seen by the flight purser who also refused to follow up with the patient because of his aggressive abusive behavior patient being discharged home. No new meds Patient is sitting in the chair and comfortable at the time of discharge Consults/Reason for consult Nephrology Operations or Procedures None Condition at Discharge: Fair Final Diagnosis/Problems List Acute Metabolic encephalopathy resolved Acute Generalized weakness resolved Alcoholic liver disease thiamine folic acid multiple Elevated liver enzymes, we will check ammonia level patient refused blood draws Acute on chronic renal failure, patient was abusive to the flight purser and she refused to follow up with the patient Acute dehydration: IV Patient is hospice revoked Patient belongs to [facility] Patient is abusive to the staff and myself and uncooperative. Discharge Disposition: Home Discharge Instruct/Medications Diet: Cardiac 2g Na,low cholest Activity: Light activity Follow Up/Referral: Follow up with your primary Dr Medications: none 35 (Time taken for discharge summary 35 minutes) Discharge Statement: "Patient was advised to return to the ER or call 911 if any headaches, dizziness, shortness of breath, chest pain, abdominal pain, bleeding, fevers, or worsening of medical condition. Patient was counseled about treatment plan, medications, possible side effects, patientverbalized understanding. All questions were answered to the best of my ability. This discharge took greater then 30 minutes in planning, reviewing documentation, counseling the patient, and discussing with other team members." ASSESSMENT ASSESSMENT Hospital Course Uneventful Assessment Acute Metabolic encephalopathy resolved Acute Generalized weakness resolved Alcoholic liver disease thiamine folic acid multiple Elevated liver enzymes, we will check ammonia level patient refused blood draws Acute on chronic renal failure, patient was abusive to the flight purser and she refused to follow up with the patient Acute dehydration: IV Patient is hospice revoked Patient belongs to [facility] Patient is abusive to the staff and myself and uncooperative. Date of Service: Oct 01, 2024 Billing Provider: LUIZ NUÑEZ MD Common Visit Codes: [id number] DISCH DAY >30min LUIZ NUÑEZ MD Oct 01, 2024 11:52
[2024-10-01 12:36] VITALS: BP 158/101; PULSE 85; RESP 16; TEMP 97.5; O2SAT 100
[2024-10-01 16:56] VITALS: BP 136/79; PULSE 81; RESP 20; TEMP 97.4; O2SAT 100
--- NOTE | 2024-10-01 19:14 | DVHINCON2 ---
Date of Service if different f: Oct 01, 2024 Consultation ([facility]) Consulting Physician: TRENT MICHAEL MD Labs Laboratory Tests Test 09/29/24 05:29 09/29/24 08:00 White Blood Count 10.7 10^3/uL (4.4-10.8) Red Blood Count 3.51 10^6/uL (4.5-5.90) Hemoglobin 11.3 g/dL (13.5-17.5) Hematocrit 34.4 % (41.0-53.0) Mean Corpuscular Volume 98.0 fL (80.0-100.0) Mean Corpuscular Hemoglobin 32.1 pg (28.0-32.0) Mean Corpuscular Hemoglobin Concent 32.7 g/dL (32.0-36.0) Red Cell Distribution Width 15.1 % (11.8-14.3) Platelet Count 123 10^3/uL (140-450) Mean Platelet Volume 11.5 fL (6.9-10.8) Neutrophils (%) (Auto) 78.2 % (37.0-80.0) Lymphocytes (%) (Auto) 15.3 % (10.0-50.0) Monocytes (%) (Auto) 5.9 % (0.0-12.0) Eosinophils (%) (Auto) 0.0 % (0.0-7.0) Basophils (%) (Auto) 0.6 % (0.0-2.0) Neutrophils # (Auto) 8.3 10 ^3/uL (1.6-8.6) Lymphocytes # (Auto) 1.6 10 ^3/uL (0.4-5.4) Monocytes # (Auto) 0.6 10 ^3/uL (0-1.3) Eosinophils # (Auto) 0 10 ^3/uL (0-0.8) Basophils # (Auto) 0.1 10 ^3/uL (0-0.2) Nucleated Red Blood Cells 0.3 % Sodium Level 136 mmol/L (136-145) Potassium Level 4.2 mmol/L (3.5-5.1) Chloride Level 102 mmol/L (98-107) Carbon Dioxide Level 24 mmol/L (20-31) Anion Gap 10 (5-15) Blood Urea Nitrogen 51 mg/dL (9-23) Creatinine 2.45 mg/dL (0.700-1.30) Glomerular Filtration Rate Calc 26 mL/min (>90) BUN/Creatinine Ratio 20.8 (10.0-20.0) Serum Glucose 133 mg/dL (74-106) Lactic Acid Level 1.9 mmol/L (0.4-2.0) Calcium Level 9.5 mg/dL (8.7-10.4) Total Bilirubin 2.2 mg/dL (0.2-1.0) Aspartate Amino Transf (AST/SGOT) 170 U/L (13-40) Alanine Aminotransferase (ALT/SGPT) 130 U/L (7-40) Alkaline Phosphatase 117 U/L (46-116) Troponin I High Sensitivity 10 ng/L (</=54) Total Protein 7.4 g/dL (5.7-8.2) Albumin 3.7 g/dL (3.2-4.8) Plasma/Serum Blood Alcohol < 3.0 mg/dL (<10) Appearance: Stated age, Groomed Psychomotor activity: Agitated Behavioral: Hostile, Uncooperative, Impulsive Eye contact: Intense Speech: Pressured, Rapid, Confused Affect: Labile, Irritable Mood: Elevated, Irritable Thought processes: Flight of ideas, Tangential, Disorganized Thought content: Paranoid, Delusions (persecution) Suicidal ideations: Absent Homicidal ideations: Present (active) Orientation: Person, Confused Memory intact: Poor Abstractability: [place] Concentration: Poor Attention: Poor Judgement: Poor Insight: Poor Vitals Vital Signs Date Time Temp Pulse Resp B/P (MAP) Pulse Ox O2 Delivery O2 Flow Rate FiO2 10/01/24 16:56 97.4 81 20 136/79 (98) 100 97.4 10/01/24 08:00 Room Air* 0 21 Current medications Current Medications Medications Dose Ordered Sig/Teetee Route Start Time Stop Time Status Last Admin Dose Admin Thiamine HCl 100 mg DAILY IV 09/30/24 10:00 Folic Acid 1 mg DAILY PO 09/30/24 10:00 09/30/24 09:27 1 MG Famotidine 10 mg DAILY IV 09/30/24 10:00 Sodium Chloride 1,000 ml @ 60 mls/hr [id number] IV 09/29/24 10:30 09/29/24 11:24 60 MLS/HR Acetaminophen/ Hydrocodone Bitart 1 tab Q4HP PRN PO 09/29/24 10:30 Ondansetron HCl 4 mg Q4HP PRN IV 09/29/24 10:30 Docusate Sodium 100 mg BIDPRN PRN PO 09/29/24 10:30 Acetaminophen 650 mg Q6HP PRN PO 09/29/24 10:30 Nitroglycerin 0.4 mg Q5MINP PRN SL 09/29/24 10:30 Morphine Sulfate 2 mg Q30M PRN IV 09/29/24 10:30 Multivitamins 1 tab DAILY PO 09/30/24 10:00 09/30/24 09:27 1 TAB Treatment plan discussed: With staff Medication adjusted: Yes Diagnosis: unspecified psychosis Plan : pt is disorganized, exhibiting psychotic symptoms and making threats to harm others. He has no insight into his psychiatric problems and son is unable to care for him at home due to his mental health condition and noncompliance to treatment. Recommend 5150 hold for GD and transfer to psychiatric inpatient hospital restart olanzapine 5mg po qhs. Haloperidol 5mg IM BID prn agitation History of Present Illness Reason for Consult : psychosis and noncompliance to treatment HPI : This is a 79-year-old male with hx of psychosis, initially presented on 09/28/24 for altered level of consciousness. Per nurse and son, Jeancarlos, after davi devi in the ED, son came to pick him up and he refused to get into car. Patient is evaluated via telepsychiatry with SonSandeep at bedside. Pt is yelling, talking nonsense, cannot recall why he is in the hospital. He reports " they want the whole world" "how would you feel if they dig up your grave?" He would not stay on topic or answer questions. He was making threats to harm greeting card writer. "I'm going to hurt you if dont get of my way!" Per son, Jeancarlso, father lives with him but disappeared from the house for 3 days and could not locate him. He later received a call that pt was here. He reports pt does not listen and has difficulty caring for him at home. Patient continues to yell, more agitated and would not allow son to answer questions. Interview terminated. Evaluation limited as a result of his psychiatric condition. Past Psychiatric History : Son reports hx of Bipolar diagnosis while incarcerated and previously used olanzapine. He is unsure of dose or when he last used any psychotropics. Unknown about prior psych admissions, holds or suicide attempts. Social History : He lives with son. other social history is unknown. No toxicology available MARKUS DUMONT DNP Oct 01, 2024 19:14
[2024-10-01 20:17] VITALS: RESP 19
[2024-10-01 21:48] LABS: Basophils # (auto) 0.1 10 ^3/uL (0-0.2); Basophils % (auto) 0.6 % (0.0-2.0); Eosinophils # (auto) 0 10 ^3/uL (0-0.8); Eosinophils % (auto) 0.4 % (0.0-7.0); Hematocrit 31.8 % (41.0-53.0); Hemoglobin 10.3 g/dL (13.5-17.5); Lymphocytes # (auto) 1.7 10 ^3/uL (0.4-5.4); Lymphocytes % (auto) 17.2 % (10.0-50.0); Mean Corpuscular Hemoglobin 32.4 pg (28.0-32.0); Mean Corpuscular Hgb Conc. 32.5 g/dL (32.0-36.0); Mean Corpuscular Volume 99.6 fL (80.0-100.0); Monocytes # (auto) 1.5 10 ^3/uL (0-1.3); Monocytes % (auto) 15.9 % (0.0-12.0); Neutrophils # (auto) 6.4 10 ^3/uL (1.6-8.6); Neutrophils % (auto) 65.9 % (37.0-80.0); Nucleated Red Blood Cells % 0.1 %; Platelet Count (auto) 97 10^3/uL (140-450); Red Blood Cells 3.19 10^6/uL (4.5-5.90); Red Cell Distribution Width 14.9 % (11.8-14.3); White Blood Cell 9.7 10^3/uL (4.4-10.8)
[2024-10-01 21:55] LABS: Alkaline Phosphatase 103 U/L (46-116); Anion Gap 7 (5-15); BUN/Creatinine Ratio 29.5 (10.0-20.0); Calcium 9.6 mg/dL (8.7-10.4); Carbon Dioxide 23 mmol/L (20-31); Chloride 104 mmol/L (98-107); Potassium 4.6 mmol/L (3.5-5.1)
[2024-10-01 21:56] LABS: Total Protein 6.5 g/dL (5.7-8.2)
[2024-10-01 21:58] LABS: Alanine Aminotransferase 130 U/L (7-40); Albumin 3.1 g/dL (3.2-4.8); Aspartate Aminotransferase 156 U/L (13-40); Bilirubin, Total 1.5 mg/dL (0.2-1.0); Blood Urea Nitrogen 41 mg/dL (9-23); Glucose 124 mg/dL (74-106); Sodium 134 mmol/L (136-145)
[2024-10-01 22:00] VITALS: BP 145/78; PULSE 78; RESP 19; TEMP 99; O2SAT 100
[2024-10-02] VITALS (7 sets, daily range): BP systolic 121–149; BP diastolic 73–80; PULSE 80–94; RESP 18–20; TEMP 98–98.6; O2SAT 98–100
--- NOTE | 2024-10-02 10:54 | DVHPN2 ---
Reviewed: Care Plan, H&P, Labs, Medications, Previous Orders, Radiology Changes from previous H/P or p: No Changes Eyes: No Pain, No Vision change, No Conjunctivae inflammation, No Eyelid inflammation, No Other, No Redness ENT: No Ear pain, No Ear discharge, No Nose pain, No Nose discharge, No Nose congestion, No Mouth pain, No Mouth swelling, No Throat pain, No Throat swelling, No Other Cardiovascular: No Chest Pain, No Palpitations, No Orthopnea, No Paroxysmal Noc. Dyspnea, No Edema, No Lt Headedness, No Other Respiratory: No Cough, No Dry; Shortness of breath; No SOB with excertion, No Wheezing, No Hemoptysis, No Pleuritic Pain, No Sputum, No Other Gastrointestinal: No Nausea, No Vomiting, No Abdominal Pain, No Diarrhea, No Constipation, No Melena, No Hematochezia, No Other Genitourinary: No Dysuria, No Frequency, No Incontinence, No Hematuria, No Retention, No Other Musculoskeletal: No other, No neck pain, No shoulder pain, No arm pain, No back pain, No hand pain, No leg pain, No foot pain Skin: No Rash, No Lesions, No Jaundice, No Bruising, No Other Objective Vitals Vital Signs Date Time Temp Pulse Resp B/P (MAP) Pulse Ox O2 Delivery O2 Flow Rate FiO2 10/02/24 08:00 20 98 Room Air* 0 21 10/02/24 05:51 98.0 80 149/80 (103) 98.0 Intake/Output Intake and Output 10/02/24 07:00 Intake Total 2440 ml Balance 2440 ml Intake Oral 2440 ml # Voids 9 # Bowel Movements 1 Medications Current Medications Medications Dose Ordered Sig/Teetee Route Start Time Stop Time Status Last Admin Dose Admin Thiamine HCl 100 mg DAILY IV 09/30/24 10:00 Folic Acid 1 mg DAILY PO 09/30/24 10:00 10/02/24 09:13 1 MG Famotidine 10 mg DAILY IV 09/30/24 10:00 Sodium Chloride 1,000 ml @ 60 mls/hr [id number] IV 09/29/24 10:30 09/29/24 11:24 60 MLS/HR Acetaminophen/ Hydrocodone Bitart 1 tab Q4HP PRN PO 09/29/24 10:30 Ondansetron HCl 4 mg Q4HP PRN IV 09/29/24 10:30 Docusate Sodium 100 mg BIDPRN PRN PO 09/29/24 10:30 Acetaminophen 650 mg Q6HP PRN PO 09/29/24 10:30 Nitroglycerin 0.4 mg Q5MINP PRN SL 09/29/24 10:30 Morphine Sulfate 2 mg Q30M PRN IV 09/29/24 10:30 Multivitamins 1 tab DAILY PO 09/30/24 10:00 10/02/24 09:13 1 TAB Olanzapine 5 mg HS PO 10/02/24 22:00 UNV Haloperidol Lactate 5 mg Q12HR PRN IM 10/02/24 11:00 UNV Laboratory Results Laboratory Tests 10/01/24 21:12 Chemistry Test 10/01/24 21:12 Albumin 3.1 g/dL (3.2-4.8) L Calcium Level 9.6 mg/dL (8.7-10.4) Total Protein 6.5 g/dL (5.7-8.2) LFT Test 10/01/24 21:12 Alanine Aminotransferase (ALT) 130 U/L (7-40) H Alkaline Phosphatase 103 U/L (46-116) Aspartate Amino Transferase (AST) 156 U/L (13-40) H Total Bilirubin 1.5 mg/dL (0.2-1.0) H Labs and/or images reviewed: Labs reviewed by me, Image(s) reviewed by me Assessment/Plan Assessment/Plan Psychosis unspecified: Tele psych consult by nurse practitioner Ana Welsh appreciated advised 5150 hold as he is dangerous to others, also advised inpatient psych transfer Placed on Zyprexa and Haldol Acute Metabolic encephalopathy resolved Acute Generalized weakness resolved Alcoholic liver disease thiamine folic acid multiple Elevated liver enzymes, we will check ammonia level patient refused blood draws Acute on chronic renal failure, patient was abusive to the drywall hanger helper and she refused to follow up with the patient Acute dehydration: Resolved Patient is hospice revoked Patient belongs to [facility] Patient is abusive to the staff and myself and uncooperative. Psychosis unspecified: Tele psych consult by nurse practitioner Ana Welsh appreciated advised 5150 hold as he is dangerous to others, also advised inpatient psych transfer Placed on Zyprexa and Haldol Plan discussed with: Patient My Orders Orders - LUIZ NUÑEZ MD Procedure Category Date Status Time Discharge DISCHARGE 10/01/24 Transmitted 11:49 * Faculty Criminal Justice CONS 10/01/24 Transmitted Consult Olanzapine Tablet PHA 10/02/24 Logged (Zyprexa Tablet) 22:00 Haloperidol Lactate PHA 10/02/24 Logged Injection (Haldol) 11:00 Communication Order ORDERS 10/02/24 Verified 10:49 Date of Service: Oct 02, 2024 Billing Provider: LUIZ NUÑEZ MD Common Visit Codes: [id number] INP/OBS CARE(HIGH) LUIZ NUÑEZ MD Oct 02, 2024 10:54
[2024-10-02] MEDS ORDERED: HALOPERIDOL LACTATE 5 MG/ML INJ VIAL IM PRN (11:00)
[2024-10-02] MEDS: OLANZapine 5 MG TAB PO SCH (21:38)
[2024-10-02] MEDS: HYDROcodone-ACET 5/325MG TAB PO PRN (21:38)
[2024-10-03 05:00] VITALS: BP 125/60; PULSE 87; RESP 19; TEMP 98.4; O2SAT 99
[2024-10-03 08:00] VITALS: PULSE 88; RESP 16; O2SAT 100
[2024-10-03 08:12] LABS: COVID19 ANTIGEN SOFIA FIA NEGATIVE (NEGATIVE)
[2024-10-03 08:44] VITALS: BP 128/63; PULSE 88; RESP 16; TEMP 98; O2SAT 100
--- NOTE | 2024-10-03 09:48 | DVHPN2 ---
Reviewed: Care Plan, H&P, Labs, Medications, Previous Orders, Radiology Changes from previous H/P or p: No Changes Eyes: No Pain, No Vision change, No Conjunctivae inflammation, No Eyelid inflammation, No Other, No Redness ENT: No Ear pain, No Ear discharge, No Nose pain, No Nose discharge, No Nose congestion, No Mouth pain, No Mouth swelling, No Throat pain, No Throat swelling, No Other Cardiovascular: No Chest Pain, No Palpitations, No Orthopnea, No Paroxysmal Noc. Dyspnea, No Edema, No Lt Headedness, No Other Respiratory: No Cough, No Dry; Shortness of breath; No SOB with excertion, No Wheezing, No Hemoptysis, No Pleuritic Pain, No Sputum, No Other Gastrointestinal: No Nausea, No Vomiting, No Abdominal Pain, No Diarrhea, No Constipation, No Melena, No Hematochezia, No Other Genitourinary: No Dysuria, No Frequency, No Incontinence, No Hematuria, No Retention, No Other Musculoskeletal: No other, No neck pain, No shoulder pain, No arm pain, No back pain, No hand pain, No leg pain, No foot pain Skin: No Rash, No Lesions, No Jaundice, No Bruising, No Other Objective Vitals Vital Signs Date Time Temp Pulse Resp B/P (MAP) Pulse Ox O2 Delivery O2 Flow Rate FiO2 10/03/24 08:44 98.0 88 16 128/63 (84) 100 98.0 10/02/24 20:00 Room Air* 0 21 Intake/Output Intake and Output 10/03/24 07:00 Intake Total 2100 ml Output Total 2850 ml Balance -750 ml Intake Oral 2100 ml Output Urine Total 2850 ml # Voids 4 Medications Current Medications Medications Dose Ordered Sig/Teetee Route Start Time Stop Time Status Last Admin Dose Admin Thiamine HCl 100 mg DAILY IV 09/30/24 10:00 10/02/24 15:20 100 MG Folic Acid 1 mg DAILY PO 09/30/24 10:00 10/02/24 09:13 1 MG Famotidine 10 mg DAILY IV 09/30/24 10:00 10/02/24 15:20 10 MG Sodium Chloride 1,000 ml @ 60 mls/hr [id number] IV 09/29/24 10:30 10/03/24 06:51 60 MLS/HR Acetaminophen/ Hydrocodone Bitart 1 tab Q4HP PRN PO 09/29/24 10:30 10/02/24 21:38 1 TAB Ondansetron HCl 4 mg Q4HP PRN IV 09/29/24 10:30 Docusate Sodium 100 mg BIDPRN PRN PO 09/29/24 10:30 Acetaminophen 650 mg Q6HP PRN PO 09/29/24 10:30 Nitroglycerin 0.4 mg Q5MINP PRN SL 09/29/24 10:30 Morphine Sulfate 2 mg Q30M PRN IV 09/29/24 10:30 Multivitamins 1 tab DAILY PO 09/30/24 10:00 10/02/24 09:13 1 TAB Olanzapine 5 mg HS PO 10/02/24 22:00 10/02/24 21:38 5 MG Haloperidol Lactate 5 mg Q12HR PRN IM 10/02/24 11:00 Laboratory Results Laboratory Tests 10/01/24 21:12 Labs and/or images reviewed: Labs reviewed by me, Image(s) reviewed by me Assessment/Plan Assessment/Plan Psychosis unspecified: Tele psych consult by nurse practitioner Ana Welsh appreciated advised 5150 hold as he is dangerous to others, also advised inpatient psych transfer Placed on Zyprexa and Haldol Acute Metabolic encephalopathy resolved Acute Generalized weakness resolved Alcoholic liver disease thiamine folic acid multiple Elevated liver enzymes, we will check ammonia level patient refused blood draws Acute on chronic renal failure, patient was abusive to the louver door assembler and she refused to follow up with the patient Acute dehydration: Resolved Patient is hospice revoked Patient belongs to [facility] Patient is abusive to the staff and myself and uncooperative. Psychosis unspecified: Tele psych consult by nurse practitioner Ana Welsh appreciated advised 5150 hold as he is dangerous to others, also advised inpatient psych transfer Placed on Zyprexa and Haldol Medically cleared for transfer to inpatient psych facility Plan discussed with: Patient My Orders Orders - LUIZ NUÑEZ MD Procedure Category Date Status Time Olanzapine Tablet PHA 10/02/24 In Process (Zyprexa Tablet) 22:00 Haloperidol Lactate PHA 10/02/24 In Process Injection (Haldol) 11:00 Communication Order ORDERS 10/02/24 Transmitted 10:49 * Battery Builder CONS 10/02/24 Transmitted Consult Communication Order ORDERS 10/02/24 Transmitted 10:59 Discharge DISCHARGE 1/10/25 Transmitted 09:44 Date of Service: Oct 03, 2024 Billing Provider: LUIZ NUÑEZ MD Common Visit Codes: [id number] INP/OBS CARE(HIGH) LUIZ NUÑEZ MD Oct 03, 2024 09:48
[2024-10-03 11:09] VITALS: BP 128/63; PULSE 88; RESP 16; TEMP 97.8; O2SAT 100
== END 2024-10-03 17:06 | disposition left against medical advice (07) | DRG 642 ==
LOC: ER 04:37 → OVERFLOW 10:22 → TELE-EAST 09-30 03:13
PROVIDERS: ADMIT Family Medicine; ATTEND Family Medicine
DX: E72.20 Disorder of urea cycle metabolism, unspecified (principal); G93.41 Metabolic encephalopathy; N17.0 Acute kidney failure with tubular necrosis; K70.9 Alcoholic liver disease, unspecified; E86.0 Dehydration; N18.9 Chronic kidney disease, unspecified; F29 Unspecified psychosis not due to a substance or known physiological condition; Z53.29 Procedure and treatment not carried out because of patient's decision for other reasons; R74.8 Abnormal levels of other serum enzymes; Z91.199 Patient's noncompliance with other medical treatment and regimen due to unspecified reason
CPT/HCPCS: 36415; 71045; 80053; 80320; 82140; 83605; 84484; 85025; 87426; 96361; 96374; 99291; 99292; G0378; J3490